=== PATIENT | female | born 1975 | race Two or more races ===

== ENCOUNTER 2018-03-26 05:39 | Observation (INO) ==
[2018-03-26] MEDS ORDERED: Metoprolol Tartrate 25 MG Tablet PO SCH (06:00)
[2018-03-26] MEDS ORDERED: Sodium Chlor 0.9% Inj 500 ML IV.SIG SCH (06:00)
[2018-03-26] MEDS ORDERED: Chlorhexidine Gluconate 2% 1 Pack (2 Cloths) TOPICAL SCH (06:00)
[2018-03-26] MEDS ORDERED: ceFAZolin 2 GM IV; once IV.SIG PRN (06:03)
[2018-03-26] MEDS ORDERED: Famotidine PF Inj 20 MG/2 ML Vial ONE (07:03)
[2018-03-26] MEDS ORDERED: Sodium Chlor 0.9% Inj 0 ML ONE (07:14)
--- NOTE | 2018-03-26 07:53 | P.PCNOB ---
Pre-Op/Post-Op Diagnoses Operation Date: 03/26/18 07:30 <No data on this case meets the specified criteria> pre-op 1. menometrorrhagia 2. multiple fibroids 3. anemia from chronic blood loss 4. pelvic pain post - op 5. Endometriosis 6. Bilateral hydrosalpinx 7. Cervical fibroid + intramural fibroids Procedure: Procedures Operation Date: 03/26/18 07:30 <No data on this case meets the specified criteria> 1. Laparoscopic supracervical hysterectomy 2. Bilateral salpingo-oophorectomy 3. Fulguration of endometriosis Estimated blood loss (ml): 500 Anesthesia type: General Complications: none Fluids: crystalloid, other (IV antibiotics + Methylene blue) Fluid amount (mL): 2,300 Urine output (mL): 300 Specimen: uterus, other (fallopian tubes) Findings: 1. multiple large uterine fibroids + large cervical fibroid 2. extensive endometriosis 3. bilateral hydrosalpinx 4. normal ovaries Disposition: PACU Narrative: Descriptions of the procedure: I discussed the risks, benefits and alternatives of the procedure with the patient. Informed consent was obtained after questions were answered. She was then taken to the operating room with her IV running. She was placed in the supine position and was given general anesthesia without difficulties or complications. IV antibiotics were given prior to surgery. She was then placed in the dorsal lithotomy position and was prepped and draped in the usual sterile fashion. Attention was first turned to the patient's genital area. A bivalved speculum was introduced inside the patient's vagina. The anterior aspect of the cervix was grasped with a single tooth tenaculum for manipulation. The cervix was carefully dilated and electrocauterized with the Bovie. A uterine manipulator was carefully introduced inside her uterus. The rest of the instruments were removed from the patient's vagina. A sterile blue towel was used to cover the perineum. The surgeon changed gloves and attention was then turned to the patient's abdomen. A vertical umbilical incision was made with the scalpel. A 5 mm trocar was introduced inside the patient's abdomen under direct visualization. A pneumo -peritoneum was created with CO2 gas. Two 5 mm trocars and one 10 mm trocar were introduced inside the patient's abdomen under direct visualization in the lower right, left and mid abdomen. A survey of the patient's abdomen revealed normal anatomy. A survey of the patient's pelvis revealed the findings noted above. Multiple endometriotic lesions were noted through the entire pelvis. The fallopian tubes were carefully grasped, electrocauterized and transected with the Harmonic scalpel. The round ligaments and the utero-ovarian ligaments were carefully and serially grasped, electrocauterized and cut with the Harmonic scalpel. Excellent hemostasis was noted. Methylene blue dye was given to patient. With a great degree of difficulty, the tissues along the uterus on both sides were serially grasped, electrocauterized and transected with the Harmonic scalpel. The ureters were noted to be away from the surgical site. The uterine vessels were skeletonized, electrocauterized and transected with the Harmonic scalpel. Good hemostasis was noted. Next, the bladder flap was created and the bladder was dissected off the lower uterine segment. Excellent hemostasis was noted. The uterine manipulator was removed. Micheline loop was used to cut and electrocauterize the cervico-uterine junction. Good hemostasis was noted. The Kleppinger was used to electrocauterize the endocervix. The morcellator was introduced inside the abdomen under direct visualization and was used to cut the uterus. The tissues were carefully removed and sent to Pathology. A very large cervical fibroid was then carefully dissected with the Harmonic scalpel. The Clippinger was used to achieve excellent hemostasis at the base. This large fibroid was morcellated and sent to Pathology. Next, fulguration of endometriosis was carefully done throughout the pelvis. The surgical sites were noted to be hemostatic. Copious irrigation was done. Care was taken to ensure the removal of all small pieces of tissue which were left in the abdomen and pelvis after morcellation. Methylene blue dye was given at the beginning of the surgical procedure. The ureters were identified again and were found to be away from the surgical sites. There was no evidence of injury or blockage of the ureters or bladder. Karishma and Intercede were placed over the cervix. All of the instruments were removed from the patient's abdomen. The ports were also removed under direct visualization. Excellent hemostasis was noted. The CO2 gas was carefully expressed out of the patient's abdomen. The 10 mm fascial incision was reapproximated with a figure eight stitch of 0-Vicryl. The skin incisions were injected with 0.5 % Marcaine and were reapproximated with subcutaneous stitches of 4-0 Vicryl. Mastisol and steri strips were placed over the incisions. The patient tolerated the procedure well. She was successfully extubated and transferred to PACU in stable condition. This surgery took 60 minutes longer than the usual due to the number and the sizes of the fibroids, In addition, the largest fibroid was a cervical fibroid which had to be removed after morcellation of the uterus was done. Note: I discussed surgical procedures and surgical findings with patient's . His questions were answered. He verbalized understanding.
[2018-03-26] MEDS ORDERED: Ibuprofen 600 MG Tablet PO PRN (11:26)
[2018-03-26] MEDS ORDERED: LORazepam 0.5 MG Tablet PO PRN (11:26)
[2018-03-26] MEDS ORDERED: Zolpidem Tartrate 5 MG Tablet PO PRN (11:26)
[2018-03-26] MEDS ORDERED: fentaNYL Citrate Inj 100 MCG/2 ML Ampul ONE ×2 (11:47)
[2018-03-26] MEDS ORDERED: Neostigmine Inj 5 MG/5 ML Syringe IV.PUSH ONE (12:00)
[2018-03-26] MEDS ORDERED: Glycopyrrolate Inj 1 MG/5 ML Syringe IV.PUSH ONE (12:00)
[2018-03-26] MEDS ORDERED: Lidocaine PF 1% Inj 5 ML Syringe INFILTRATN ONE (12:00)
--- NOTE | 2018-03-26 19:04 | ECG ---
Date Performed: 03/26/2018 Time Performed: 06:22:00 PTAGE: 42 years EKG: Sinus rhythm Normal ECG NO PREVIOUS TRACING DOCTOR: Renetta Mckenzie Interpretating Date/Time 03/26/2018 19:02:34
[2018-03-26] MEDS: Docusate Sodium 100 MG Capsule PO SCH (20:50)
[2018-03-27] MEDS ORDERED: Levothyroxine 75 MCG Tablet PO SCH (06:00)
[2018-03-27 06:23] LABS: Baso % (Auto) 0.3 % (0.0-2.0); Eos % (Auto) 0.2 % (0.0-4.0); Hemoglobin 9.6 gm/dL (11.6-15.3); Lymph # (Auto) 1.6 th/mm3 (1.0-4.8); Lymph % (Auto) 19.9 % (9.0-44.0); Mean Corpuscular HGB Conc 32.1 % (32.0-36.0); Mean Corpuscular Hemoglobin 26.8 pg (27.0-34.0); Mean Corpuscular Volume 83.6 fL (80.0-100.0); Mean Platelet Volume 8.4 fL (7.0-11.0); Mono # (Auto) 0.9 th/mm3 (0.0-0.9); Mono % (Auto) 10.8 % (0.0-8.0); Neut # (Auto) 5.6 th/mm3 (1.8-7.7); Neut % (Auto) 68.8 % (16.0-70.0); Platelet Count 217 th/mm3 (150-450); Red Cell Distribution Width 13.7 % (11.6-17.2); White Blood Count 8.2 th/mm3 (4.0-11.0)
[2018-03-27 06:50] LABS: Calcium 8.3 mg/dL (8.5-10.1); Carbon Dioxide 26.5 meq/L (21.0-32.0); Potassium 3.7 meq/L (3.5-5.1)
[2018-03-27] MEDS: Docusate Sodium 100 MG Capsule PO SCH (08:22)
--- NOTE | 2018-03-27 08:28 | P.PNOB ---
Assessment and Plan (1) Pelvic and perineal pain Status: Acute (2) Iron deficiency anemia due to chronic blood loss Status: Acute - Postoperative Procedures Operation Date: 03/26/18 07:39 Actual Procedures Side Surgeon p LAPAROSCOPIC ASSISTED SUPRACERVICAL HYSTERECTOMY, BILATERAL SALPINGECTOMY, FULGURATION OF ENDOMETRIOSIS Not Applicable Shama Luis MD Postoperative day: 1 Postoperative status: doing well, anemia Postoperative plan: routine post-op care, discharge - Time Spent With Patient Total time spent is greater than 50% in coordination of care (as documented) at patient's floor/unit and/or counseling patient: 25 - 35 minutes Subjective Subjective: patient reports feeling better, patient has no complaints, patient desires discharge, pain is well controlled, patient is tolerating oral intake Physical Exam Vital signs: Temp Pulse Resp BP Pulse Ox 98.6 F 65 18 106/62 96 03/27/18 04:33 03/27/18 04:33 03/27/18 04:33 03/27/18 04:33 03/26/18 13:03 - Constitutional no acute distress - Routine Abdominal Exam Present: soft, normoactive bowel sounds - Urinary Catheter Management Indwelling Urethral Catheter Cath placed during this visit: yes Urethral indwelling: No Insertion date: 03/26/18 Results - Labs CBC & Chem 7: 03/27/18 05:28 03/27/18 05:28 Labs: Laboratory Results - last 24 hr 03/27/18 03/27/18 05:28 05:28 WBC 8.2 RBC 3.60 L Hgb 9.6 L Hct 30.0 L MCV 83.6 MCH 26.8 L MCHC 32.1 RDW 13.7 Plt Count 217 MPV 8.4 Neut % (Auto) 68.8 Lymph % (Auto) 19.9 [place] % (Auto) 10.8 H Eos % (Auto) 0.2 Baso % (Auto) 0.3 Neut # (Auto) 5.6 Lymph # (Auto) 1.6 [place] # (Auto) 0.9 Eos # (Auto) 0.0 Baso # (Auto) 0.0 WBC Differential . Differential Comment Auto diff final Sodium 145 Potassium 3.7 Chloride 110 H Carbon Dioxide 26.5 Anion Gap 9 BUN 8 Creatinine 0.73 Estimated GFR 87 L Random Glucose 87 Calcium 8.3 L
[2018-03-27] MEDS ORDERED: Ferrous Sulfate 325 MG Tablet PO SCH (09:00)
== END 2018-03-27 14:30 | disposition home or self-care (01) ==
LOC: HOR 05:39 → H1EA 05:39
PROVIDERS: ADMIT Obstetrics & Gynecology; ATTEND Obstetrics & Gynecology
PROC: LAPLASH (ICD-10-PCS; 2018-03-26 07:39)